=== PATIENT | male | born 1980 | race Caucasian/White ===

== ENCOUNTER → 2025-04-29 13:49 | Outpatient (BNVA) | payer MEDICARE, SELFPAY | PROVIDERS: Visit Provider Nurse Practitioner Family | DX: D22.5 Melanocytic nevi of trunk (principal); D22.62 Melanocytic nevi of left upper limb, including shoulder; L57.8 Other skin changes due to chronic exposure to nonionizing radiation; Z08 Encounter for follow-up examination after completed treatment for malignant neoplasm; Z85.820 Personal history of malignant melanoma of skin | CPT/HCPCS: 11102; 99203 ==